=== PATIENT | male | born 1945 | race Caucasian/White ===

== ENCOUNTER 2022-03-01 09:51 | Outpatient (CLI) | payer MEDICARE, SELFPAY ==
--- NOTE | ~2022-03-01 | XR_ITS ---
XR chest 2V 03/01/2022 10:17 Indication: Abnormal PSA levels. Procedure: 2 view chest Comparison: No prior studies for comparison. Findings: Heart size is normal. No focal air space disease, pulmonary edema, pleural effusion or susp ected pneumothorax. There are calcified bilateral pulmonary nodules, consistent with chronic granulom atous disease. No acute osseous abnormality. Impression: 1: No acute cardiopulmonary disease. Reviewed, dictated and finalized at location A. Impression: 1: No acute cardiopulmonary disease.
--- NOTE | ~2022-03-01 | CT_ITS ---
EXAMINATION: CT abdomen pelvis w con DATE: 03/01/2022 10:27 INDICATION: Abnormal PSA level TECHNIQUE: Computed tomography (CT) of the abdomen and pelvis was performed with 100 CC Omnipaque 300 intravenous contrast. Automated exposure control and iterative reconstruction technique were employe d. Exam dose: 1095.97 mGy-cm total exam DLP. COMPARISON: None. FINDINGS: Right lower lobe calcified pulmonary granuloma. Calcified right hilar node. Calcified splen ic granuloma. Findings are consistent with old granulomatous disease. The lung bases are clear of inf iltrate or consolidation. Borderline heart size. No pericardial or pleural effusion. Occasional very small hypoattenuating hepatic lesions are noted, too small to definitively characteri ze, but likely hepatic cysts. The gallbladder is present and appears unremarkable. No bile duct or pancreatic duct dilatation. No p ancreatic mass lesion or calcification. Normal morphology of the adrenal glands. Multiple bilateral renal cysts, measuring up to 8 mm on the right and left. No urinary tract calculus or hydroureteronephrosis. There is moderate diffuse thickening of the urinary bladder wall with prominent prostate enlargement and minimal calcification. Small bilateral fat-containing inguinal hernias. Small fat-containing umbilical hernia. Diverticulosis of the sigmoid colon; no CT evidence of diverticulitis. No bowel obstruction, bowel wa ll thickening, pneumatosis or intraperitoneal free air. There is atherosclerotic calcification but normal caliber of the abdominal aorta. There is calcificat ion at the origins of celiac and superior mesenteric and particularly the renal arteries. No intraper itoneal or retroperitoneal or pelvic mass lesion or adenopathy or ascites. Multilevel severe degenerative disc disease of the lumbar and lumbosacral spine. No suspicious osteol ytic or osteoblastic lesions are noted. IMPRESSION: Probable very small hepatic cysts Bilateral renal cysts Prostate enlargement, likely responsible for moderate thickening of the urinary bladder wall Diverticulosis of sigmoid colon; no evidence of diverticulitis Multilevel severe degenerative disc disease of the lumbar and lumbosacral spine Reviewed, dictated and finalized at Location A. Reviewed, dictated and finalized at location B.
--- NOTE | ~2022-03-01 | NM_ITS ---
EXAMINATION: NM bone scan whole body DATE: 03/01/2022 15:54 INDICATION: Abnormal PSA level TECHNIQUE: 24.2 mCi Tc-99m HDP was administered intravenously. Delayed whole-body scintigrams were o btained. COMPARISON: Chest radiograph and CT abdomen and pelvis dated 03/01/2022 FINDINGS: Likely degenerative joint centered uptake at the bilateral acromioclavicular, sternoclavicular joints , the bilateral knees and multiple joints at the hands and wrists. Mild lumbar dextroscoliosis with d egenerative disc disease related increased uptake along the concave aspects of the curvature at the l eft side of the mid lumbar and right-sided the lower lumbar spine. Additional likely degenerative upt flori posteriorly at the upper cervical facet joints and inferiorly at the lower cervical disc spaces. Likely dental disease related uptake at the mandible and maxilla. There is prominent uptake at the bi lateral wrists and to a lesser degree at the bilateral ankles and hindfeet which appears more more di ffuse than the typical joint centered uptake suggesting soft tissue uptake of indeterminate etiology. IMPRESSION: 1. No bone lesions suspicious for metastatic disease. 2. Prominent uptake at the bilateral wrists, ankles and hindfeet at least some of which appears likel y soft tissue related and which is of indeterminate etiology. Consider correlation with plain radiogr aphs of the bilateral wrists and ankles. Reviewed, dictated and finalized at location A. IMPRESSION: 1. No bone lesions suspicious for metastatic disease. 2. Prominent uptake at the bilateral wrists, ankles and hindfeet at least some of which appears likely soft tissue related and which is of indeterminate etiol ogy. Consider correlation with plain radiographs of the bilateral wrists and an kles.
[2022-03-01 10:25] LABS: Estimated Glomerular Filt Rate 54
== END 2022-03-01 09:52 | disposition home or self-care (01) ==
PROVIDERS: PCP Internal Medicine; Visit Provider Urology
DX: N40.0 Benign prostatic hyperplasia without lower urinary tract symptoms (principal); K40.90 Unilateral inguinal hernia, without obstruction or gangrene, not specified as recurrent; K42.9 Umbilical hernia without obstruction or gangrene; I25.10 Atherosclerotic heart disease of native coronary artery without angina pectoris; M47.817 Spondylosis without myelopathy or radiculopathy, lumbosacral region; N28.1 Cyst of kidney, acquired; K57.30 Diverticulosis of large intestine without perforation or abscess without bleeding
CPT/HCPCS: 71046; 74177; 78306; A9561; Q9967

== ENCOUNTER 2022-08-08 10:12 | Outpatient (CLI) | payer MEDICARE, SELFPAY ==
[2022-08-08 11:54] LABS: Alanine Aminotransferase 21 U/L (6-50); Albumin Level 4.9 g/dL (3.5-5.1); Alkaline Phosphatase 23 U/L (38-126); Anion Gap 13 mmol/L (8-16); Aspartate Amino Transferase 26 U/L (17-59); Bilirubin,Total 0.6 mg/dL (0.2-1.3); Blood Urea Nitrogen 24 mg/dL (9-20); Calcium 10.2 mg/dL (8.4-10.2); Carbon Dioxide 30 mmol/L (22-30); Chloride 100 mmol/L (98-107); Estimated Glomerular Filt Rate 49; Glucose 114 mg/dL (65-110); Potassium 4.3 mmol/L (3.4-5.0); Sodium 143 mmol/L (137-145)
[2022-08-08 11:56] LABS: INR 1.2; Partial Thromboplastin Time 32.5 SECONDS (22.3-36.8); Prothrombin Time 14.6 Seconds (11.1-14.7)
[2022-08-08 12:09] LABS: Basophils Absolute Auto 0.1 K/mm3 (0.0-0.1); Eosinophils Absolute Auto 0.3 K/mm3 (0-0.3); Eosinophils Percent Auto 3.7 % (0-4.4); Hematocrit 42.4 % (42.0-52.0); Hemoglobin 14.5 g/dL (14.0-18.0); Immature Granulocyte Absolute 0.04 K/mm3 (0.00-0.031); Immature Granulocyte Percent A 0.6 % (0-0.5); Lymphocytes Absolute Auto 1.39 K/mm3 (0.9-3.2); Lymphocytes Percent Auto 20.4 % (18.3-44.2); Mean Corpuscular HGB Conc 34.2 g/dl (32-36); Mean Corpuscular Hemoglobin 33.2 pg (26-34); Mean Platelet Volume 11.6 fl (7.4-10.4); Monocytes Absolute Auto 0.7 K/mm3 (0.1-0.6); Monocytes Percent Auto 9.7 % (2.6-8.5); Neutrophils Absolute Auto 4.4 K/mm3 (1.3-6.7); Neutrophils Percent Auto 64.6 % (45.5-73.1); Platelet Count Result 217 k/mm3 (150-375); Red Blood Count 4.37 M/mm3 (4.6-6.20); Red Cell Distribution Width 11.8 % (11.5-14.5); White Blood Count 6.8 K/mm3 (4.5-10.0)
[2022-08-08 12:18] LABS: Add Urine Microscopic? NO; Appearance Urine Clear (Clear); Bilirubin Urine Negative (Negative); Blood Urine Negative (Negative); Color Urine Straw (Yellow); Glucose Urine UA Negative (Negative); Ketones Urine Negative (Negative); Leukocyte Esterase Ur Negative LEU/UL (Negative); Nitrate Urine Negative (Negative); Protein Urine Negative (Negative); Specific Grav Ur 1.011 (1.001-1.035); Urobilinogen Urine Negative mg/dL (<2.0)
== END 2022-08-08 10:13 | disposition home or self-care (01) ==
LOC: ANHSURGERY 10:17
PROVIDERS: PCP Internal Medicine; Visit Provider Urology
DX: Z01.818 Encounter for other preprocedural examination (principal); C61 Malignant neoplasm of prostate
CPT/HCPCS: 36415; 80053; 81003; 85025; 85610; 85730; 86850; 86900; 86901

== ENCOUNTER 2022-08-16 00:34 | Day surgery (SDC) | payer MEDICARE, SELFPAY ==
[2022-08-08 10:24] VITALS: BMI 30.2
--- NOTE | 2022-08-08 10:56 | PC.NURSE ---
Report to the Outpatient Waiting Room, entrance under the green pavilion located off [facility], at time _0600 on date _08/16/22 . Planned Procedure Time: _07 . Time changes happen often and if your time is changed the preop area will call you the afternoon before. - You and your visitor will be asked to self-screen and do not enter if you have any COVID symptoms. - We encourage only one visitor and NO visitors under age 16 are allowed at this time. Your visitor will receive communication by the phone number that is given day of service. - The patient visitor is requested to social distance or may leave the building when not with patient due to restrictions. - A mask is required within the hospital. Patients may have clear liquids (water, carbonated beverages, clear teas, apple juice) until 3 hours prior to surgery with a maximum of 20 ounces. - No food from midnight until time of surgery - Infants may have breast milk until 4 hours before surgery, formula 6 hours prior to surgery. - Children will be allowed to drink immediately following surgery. If applicable, please bring a bottle or sippy cup to assist with drinking. Juice, water, soda, and popsicles are readily available. For infants on formula, please bring formula the day of surgery. Pacifiers are allowed. Take the following medications with a SIP of water the morning of surgery: ___AMLODIPINE Medications to discontinue per physician _PT STATES HOLD MELOXICAM 7 DAYS PRE OP PER DR JOYCE_ VITAMIN D3 HOLD 3 DAYS PRE OP Date to take last dose__MELOXICAM 08/08/22__ VITAMIN D3 08/12/22 Please no make-up, nail spanish, hairspray, perfume, deodorant, or body powder the day of surgery. No jewelry (including any body piercings) or valuables the day of surgery, leave them at home. Please take a shower or bath the night before, or the morning of, surgery with an antibacterial soap. Wear comfortable, loose fitting clothing. Children are encouraged to wear pajamas. - Jewelry must be removed prior to entering the operating room. Rings and piercings that are not removed may be cut off. - The hospital will not accept responsibility for valuables. - Please leave all valuables, including medications, at home the day of surgery. BOWEL PREP PER DR JOYCE If you are going home after surgery, a licensed telephone directory distributor driver must drive you home. - NO public transportation without another adult. - We recommend that an adult stay with you for 24 hours following discharge. - We also recommend that you do not drive, make important decision, drink alcoholic beverages, or take any drugs that were not prescribed by your health care provider for at least 24 hours after your discharge time. For Pediatric surgeries, we recommend two adults accompany the child home. Follow any additional instructions given to you from your surgeon. If you or anyone in your household have experienced Covid symptoms in the past week, please notify your surgeon or the nurse liaison at the phone number below for possible testing. VERBAL AND WRITTEN instructions given to _PATIENT and asked if any additional questions and then verbalized understanding. Patient advised to call surgeon office or pre surgery nurse liaison [phone] if any additional questions.
[2022-08-08 11:23] VITALS: BP 142/84; PULSE 64; RESP 18; TEMP 36.8; O2SAT 98
--- NOTE | 2022-08-09 07:21 | PM.IMHP ---
H&P: HPI History of Present Illness Date/Time: 08/09/22 07:21 Chief Complaint: Prostate cancer Narrative: 77-year-old gentleman was found to have a PSA over 26 last spring. In January 2022 he underwent a prostate biopsy that revealed 12 of 12 cores with Babcock 8 and 9 adenocarcinoma. Some of these cores that were intraductal components to his cancer. His prostate volume at that time by ultrasonography was measured at [address] scan of the abdomen and pelvis bone scan and chest x-ray showed no definitive evidence of metastatic disease. After a couple discussions regarding therapeutic options he has elected for a robotic prostatectomy with bilateral pelvic lymphadenectomy. He is aware the risk including, but not limited to, adverse cardiopulmonary events, incontinence, erectile dysfunction and rectal injury. He is also aware of possible he for adjuvant therapy postoperatively. Review of Systems Cardiovascular: Cardiovascular: Denies chest pain, Denies lightheadedness, Denies palpitations and Denies dyspnea Respiratory: Respiratory: Denies dyspnea Gastrointestinal: Gastrointestinal: Denies diarrhea, Denies nausea and Denies vomiting Genitourinary: Genitourinary: Denies hematuria and Denies dysuria Endocrine: Endocrine: Denies palpitations PMFSH Social History Social History Smoking packs per day: 1 Smoking cigarettes per day: 20.0 Years smoked: 30 Smoking pack-years: 30.00 Smoking status: Former smoker Tobacco type: cigarettes Smoking end date: 03/12/86 Spiritual care concerns: No Meds Home Medications and Allergies Home Medications Medication Instructions Recorded Confirmed Type allopurinol 300 mg tablet 300 mg PO DAILY 08/08/22 08/08/22 History amlodipine 2.5 mg tablet 2.5 mg PO DAILY 08/08/22 08/08/22 History atorvastatin 20 mg tablet 20 mg PO DAILY 08/08/22 08/08/22 History cholecalciferol (vitamin D3) 50 50 mcg PO DAILY 08/08/22 08/08/22 History mcg (2,000 unit) tablet docusate sodium 100 mg capsule 100 mg PO HS 08/08/22 08/08/22 History (Dulcolax Stool Softener (docusate)) fenofibrate 160 mg tablet 160 mg PO DAILY 08/08/22 08/08/22 History finasteride 5 mg tablet 5 mg PO DAILY 08/08/22 08/08/22 History latanoprost 0.005 % eye drops 1 drp EACH EYE HS 08/08/22 08/08/22 History lisinopril 20 1 tablet PO DAILY 08/08/22 08/08/22 History mg-hydrochlorothiazide 25 mg tablet meloxicam 15 mg tablet 15 mg PO DAILY 08/08/22 08/08/22 History tamsulosin 0.4 mg capsule 0.4 mg PO DAILY 08/08/22 08/08/22 History Allergies Allergy/AdvReac Type Severity Reaction Status Date / Time No Known Allergies Allergy Verified 08/08/22 10:25 Vital Signs Vital Signs - 24 hr 08/08/22 11:23 Temperature 98.3 F Pulse Rate 64 Respiratory Rate 18 Blood Pressure 142/84 H Pulse Oximetry 98 Oxygen Delivery Room Air Exam Const: General: no acute distress Resp: Effort & Inspection: normal respiratory effort GI: Inspection: non-distended GI Palp: No abdominal tenderness and No Guarding due to palpation present (GI) Auscultation: normal bowel sounds Assessment and Plan Assessment and plan (1) Prostate cancer: Code(s): C61 - Malignant neoplasm of prostate Status: Acute Assessment and Plan: Robotic assisted laparoscopic prostatectomy with bilateral pelvic lymphadenectomy
--- NOTE | 2022-08-15 14:29 | P.PNAN_ITS ---
Anes - Initial Pre Proc Eval Procedure: Operation Date: 08/16/22 07:30 Proposed Procedures p Robotic Assisted Laparoscopic Prostatectomy, Bilateral Pelvic Lymph Node Dissection - Claudy Alvarez MD Date/Time: 08/15/22 14:29 Surgeon: Claudy Alvarez MD Pre Op Diagnosis: prostate CA Patient Data Age: 77 Gender: M Height: 1.8 m Weight: 98.1 kg Last Vital Signs Temp 98.3 F 08/08/22 11:23 Pulse 64 08/08/22 11:23 Resp 18 08/08/22 11:23 BP 142/84 H 08/08/22 11:23 Pulse Ox 98 08/08/22 11:23 O2 Del Method Room Air 08/08/22 11:23 Allergies Allergy/AdvReac Type Severity Reaction Status Date / Time No Known Allergies Allergy Verified 08/08/22 10:25 Home Medications Medication Instructions Recorded Confirmed Type allopurinol 300 mg tablet 300 mg PO DAILY 08/08/22 08/08/22 History amlodipine 2.5 mg tablet 2.5 mg PO DAILY 08/08/22 08/08/22 History atorvastatin 20 mg tablet 20 mg PO DAILY 08/08/22 08/08/22 History cholecalciferol (vitamin D3) 50 50 mcg PO DAILY 08/08/22 08/08/22 History mcg (2,000 unit) tablet docusate sodium 100 mg capsule 100 mg PO HS 08/08/22 08/08/22 History (Dulcolax Stool Softener (docusate)) fenofibrate 160 mg tablet 160 mg PO DAILY 08/08/22 08/08/22 History finasteride 5 mg tablet 5 mg PO DAILY 08/08/22 08/08/22 History latanoprost 0.005 % eye drops 1 drp EACH EYE HS 08/08/22 08/08/22 History lisinopril 20 1 tablet PO DAILY 08/08/22 08/08/22 History mg-hydrochlorothiazide 25 mg tablet meloxicam 15 mg tablet 15 mg PO DAILY 08/08/22 08/08/22 History tamsulosin 0.4 mg capsule 0.4 mg PO DAILY 08/08/22 08/08/22 History Patient hx anesthesia problems: none Family hx anesthesia problems: none Results Review: All pre-operative results and documents have been reviewed as part of the pre- operative evaluation. PMFSH Past Medical History Medical History (Updated 08/15/22 @ 14:29 by Diallo Saini MD) COPD (chronic obstructive pulmonary disease) Hyperlipidemia Hypertension RONAK (obstructive sleep apnea) Social History Social History Smoking packs per day: 1 Smoking cigarettes per day: 20.0 Years smoked: 30 Smoking pack-years: 30.00 Smoking status: Former smoker Tobacco type: cigarettes Smoking end date: 03/12/86 Living arrangements: with family Spiritual care concerns: No Anes - Eval Final PreProcedure Day of Procedure 08/15/22 14:29 Patient weight: obese Heart: regular rate and rhythm Lungs: clear to auscultation Airway: Mallampati scale class III Neurological: alert and oriented Last oral intake: >/= 8 hours ASA classification: III Emergent: no Anesthetic plan: proceed Anesthesia type and monitoring: general ETT and standard monitoring Results Review: All pre-operative results and documents have been reviewed as part of the pre- operative evaluation. Informed Consent: The patient's anesthetic plan and its attendant risks and benefits were discussed with the patient/family/POA. Questions were solicited and answers provided to the satisfaction of the patient/family/POA.
[2022-08-16] VITALS (14 sets, daily range): BP systolic 109–153; BP diastolic 62–91; PULSE 61–92; RESP 10–22; TEMP 36.3–36.9; O2SAT 95–100
[2022-08-16] MEDS: LACTATED RINGERS 1,000 ML 30 ML IV CONT ×2 (07:00→09:59)
--- NOTE | 2022-08-16 07:26 | WPDHPUPDATE1 ---
History and Physical Update Update Date/Time: 08/16/22 07:26 History and Physical has been reviewed, including an updated exam of the patient. There are NO changes in the patient's condition. Risks, benefits, and alternatives have been discussed and questions answered. Patient agrees to proceed with procedure.
[2022-08-16] MEDS: ceFAZolin 2 GM/D5W 50 ML 2 GM/50 ML BAG IVPB (07:33)
--- NOTE | 2022-08-16 09:15 | SUR.OPER ---
Left Pelvic Lymph Node sent for Frozen Section (attempted to notify pathology of incoming specimen but no answer) Excision @ 0910 Out of Room @ 0916 Received by Brittany @ 0918 Path Report @ [id number]
--- NOTE | 2022-08-16 09:55 | P.OP_ITS ---
Procedure Note - Detailed Date of Procedure 08/16/22 Pre-op Diagnosis Prostate CA Post-op Diagnosis Same Procedure Performed 1. Attempted (aborted) robotic prostatectomy. 2. Robotic bilateral pelvic lymphadenectomy Surgeon Claudy Alvarez MD Description of Procedure The patient was brought to the operative suite, where he was prepped and draped in routine sterile fashion while in a dorsal lithotomy, deep Trendelenburg position. A supraumbilical 10 mm trocar was placed after insufflation of the abdomen with a Veress needle. Three robotic ports were then placed under direct vision. Two of these were placed in the right lower quadrant - 10 cm and 20 cm lateral to, and in line with, the umbilicus. A third robotic trocar was placed 10 cm to the left of the umbilicus, and 20 cm to the left of the umbilicus, a 12 mm standard laparoscopic trocar was placed to be used as an assistant professor of anthropology port. Lastly, a 5 mm trocar was placed in the left upper quadrant midway between the umbilicus and the left robotic trocar. Attention was then turned to the prostatectomy. I opted for a posterior approach in this patient. An incision was made in the parietal peritoneum along the posterior bladder/posterior prostate about 2 cm above the reflection of the peritoneum over the anterior rectum. At this point it immediately became apparent that the tissue in the cul-de-sac was noticeably abnormal. The vas deferens and seminal vesicles were densely adherent to the periprostatic fat. Made a significant attempt to dissect the right seminal vesicle. The tissue was very friable and tore on multiple occasions. I had great difficulty identifying the right seminal vesicle but did not attempt to dissect it. I then lifted the vas deferens and right seminal vesicle in attempt to identify a plane posterior to the prostate. This tissue a was densely adherent to the anterior rectal wall. In light of that, knowing the aggressive nature of this patient's prostate cancer opted to forego additional dissection and abort the attempted prostatectomy, given the high likelihood of rectal injury and the likelihood for incomplete resection of his malignancy. I did decide to do an extended pelvic lymphadenectomy. The limits of this dissection were similar bilaterally. Specifically, the limits were the bifurcation of the common iliac vein proximally, the inguinal ligament distally, the obturator nerve posteriorly and the anterior aspect to the external iliac artery laterally. This dissection was undertaken with care to avoid any injury to the obturator nerve. This selena tissue was delivered through the assistant professor of anthropology trocar site without need to extend any incisions. I opted not to place a pelvic drain. The robot is undocked, and the trocars were removed. The specimen was removed through the supraumbilical incision. Subcutaneous tissue was irrigated. Skin incisions were closed with 4-0 Vicryl subcuticular. Blood loss throughout this was 10cc. The patient tolerated the procedure well, was taken to recovery room in good condition. Pathology Yes Complications No immediate complications Condition Stable Disposition PACU
[2022-08-16] MEDS: fentaNYL CITRATE INJ (*CRX) 100 MCG/2 ML VIAL 25 MCG IV PUSH ×6 (10:05→11:27)
--- NOTE | 2022-08-16 12:01 | ADMGEN ---
This patient, Davis Verma, was admitted to 2 Medical Room 261-01. Patient/family oriented to hospital policies and general routines including ID bracelet, bed and alarms, visiting hours, pain management, procedures, bathroom and other care routines, personal items, smoking policy, room service/diet, and visiting hours. Information on how to activate the Rapid Response Team has been discussed. Patient/Family are encouraged to report perceived risks to care and to ask questions if they do not understand what they are told or what they should do.
[2022-08-16] MEDS: LATANOPROST 0.005% OP SOLN 2.5 ML BTL 1 DROP EACH EYE (20:49)
[2022-08-16] MEDS: DOCUSATE SODIUM 100 MG CAPSULE PO (20:49)
[2022-08-17 00:59] VITALS: BP 119/66; PULSE 71; RESP 20; TEMP 36.6; O2SAT 95
[2022-08-17 05:35] LABS: Hematocrit 31.8 % (42.0-52.0); Hemoglobin 11.4 g/dL (14.0-18.0)
[2022-08-17 05:38] VITALS: BP 114/57; PULSE 67; RESP 20; TEMP 36.6; O2SAT 97
[2022-08-17 05:53] LABS: Anion Gap 8 mmol/L (8-16); Blood Urea Nitrogen 18 mg/dL (9-20); Calcium 8.7 mg/dL (8.4-10.2); Carbon Dioxide 27 mmol/L (22-30); Chloride 101 mmol/L (98-107); Estimated CRCL calculation 54 ml/min; Estimated Glomerular Filt Rate > 60; Glucose 109 mg/dL (65-110); Potassium 3.5 mmol/L (3.4-5.0); Sodium 136 mmol/L (137-145)
--- NOTE | 2022-08-17 07:03 | WPDUROPN2 ---
Progress Note: A&P Assessment and Plan (1) Prostate cancer: Code(s): C61 - Malignant neoplasm of prostate Status: Acute Assessment and Plan: Long discussions with pt. and about findings at surgery leading to decision not to remove his prostate. Tolerating regular diet. Likely home midday today. Subjective Subjective Date/Time Seen: 08/17/22 07:03 Comfortable, tolerating regular diet Review of Systems Cardiovascular: Cardiovascular: Denies chest pain, Denies lightheadedness, Denies palpitations and Denies dyspnea Respiratory: Respiratory: Denies dyspnea Gastrointestinal: Gastrointestinal: Denies diarrhea, Denies nausea and Denies vomiting Genitourinary: Genitourinary: Denies hematuria and Denies dysuria Endocrine: Endocrine: Denies palpitations Exam Const: General: no acute distress Resp: Effort & Inspection: normal respiratory effort GI: Inspection: non-distended GI Palp: No abdominal tenderness and No Guarding due to palpation present (GI) Auscultation: normal bowel sounds Objective Data Vital Signs Vital Signs: Vital Signs - 24 hr 08/16/22 07:12 08/16/22 09:59 08/16/22 10:10 Temperature 97.7 F 97.3 F L Pulse Rate 70 68 65 Respiratory Rate 14 22 H 12 Blood Pressure 132/69 153/85 H 142/85 H Pulse Oximetry 96 98 100 Oxygen Delivery Room Air Simple Face Mask Simple Face Mask Oxygen Flow Rate 8 8 08/16/22 10:25 08/16/22 10:40 08/16/22 10:55 Temperature 97.4 F L Pulse Rate 61 66 75 Respiratory Rate 10 L 10 L 12 Blood Pressure 137/80 137/80 135/73 Pulse Oximetry 100 100 98 Oxygen Delivery Simple Face Mask Simple Face Mask Room Air Oxygen Flow Rate 8 8 08/16/22 11:10 08/16/22 11:25 08/16/22 11:45 Temperature 97.3 F L Pulse Rate 77 74 68 Respiratory Rate 12 12 16 Blood Pressure 135/91 H 132/84 143/81 H Pulse Oximetry 98 98 96 Oxygen Delivery Room Air Room Air Oxygen Flow Rate 08/16/22 12:00 08/16/22 12:30 08/16/22 14:15 Temperature 97.3 F L 97.5 F L 97.7 F Pulse Rate 63 71 92 Respiratory Rate 16 16 18 Blood Pressure 126/73 127/72 140/77 Pulse Oximetry 95 98 98 Oxygen Delivery Oxygen Flow Rate 08/16/22 18:00 08/16/22 21:42 08/17/22 00:59 Temperature 98.3 F 98.4 F 98 F Pulse Rate 76 73 71 Respiratory Rate 16 20 20 Blood Pressure 109/62 126/64 119/66 Pulse Oximetry 95 96 95 Oxygen Delivery Oxygen Flow Rate 08/17/22 05:38 Temperature 97.8 F Pulse Rate 67 Respiratory Rate 20 Blood Pressure 114/57 L Pulse Oximetry 97 Oxygen Delivery Oxygen Flow Rate Intake/Output Intake/Output: Intake & Output 08/14/22 08/15/22 08/16/22 08/17/22 23:59 23:59 23:59 23:59 Intake Total 2600 450 Output Total 1690 1600 Balance 910 -1150 Meds/Results Medications: Active Medications Generic Name Dose Route Start Last Admin Trade Name Freq PRN Reason Stop Dose Admin Allopurinol 300 mg 08/17/22 09:00 Allopurinol 300 Mg Tablet PO DAILY [facility] Amlodipine Besylate 2.5 mg 08/17/22 09:00 Amlodipine Besylate 2.5 Mg Tablet PO DAILY [facility] Atorvastatin Calcium 20 mg 08/17/22 09:00 Atorvastatin 20 Mg Tablet PO DAILY [facility] Docusate Sodium 100 mg 08/16/22 21:00 08/16/22 20:49 Docusate Sodium 100 Mg Capsule PO 100 mg HS JOAN Administration Fenofibrate 160 mg 08/17/22 09:00 Fenofibrate 160 Mg Tablet PO DAILY [facility] Finasteride 5 mg 08/17/22 09:00 Finasteride 5 Mg Tablet PO DAILY [facility] Hydrochlorothiazide 25 mg 08/17/22 09:00 Hydrochlorothiazide 25 Mg Tablet PO DAILY [facility] Hyoscyamine 0.125 mg 08/16/22 11:33 Hyoscyamine Sulfate 0.125 Mg Tablet SUBLINGUAL Q4H PRN Bladder Spasm Latanoprost 1 drop 08/16/22 21:00 08/16/22 20:49 Latanoprost 0.005% Op Soln 2.5 Ml Btl EACH EYE 1 drop HS JOAN Administration Levofloxacin 500 mg 08/17/22 09:00 Levofloxacin 500 Mg Tablet PO DAILY [facility] Lisinopril 20 mg 08/17/22 09:00
--- NOTE | 2022-08-17 07:56 | WPDANESPN ---
Anes - Prog Note Post-Op Date/Time: 08/17/22 07:56 Vital Signs: Last Vital Signs Temp 36.6 C 08/17/22 05:38 Pulse 67 08/17/22 05:38 Resp 20 08/17/22 05:38 BP 114/57 L 08/17/22 05:38 Pulse Ox 97 08/17/22 05:38 O2 Del Method Room Air 08/16/22 11:25 O2 Flow Rate 8 08/16/22 10:40 Pain Score (VAS): 2 I/O: Intake & Output 08/16/22 08/16/22 08/17/22 15:59 23:59 07:59 Intake Total 2120 480 450 Output Total 90 1600 1600 Balance 2030 -1120 -1150 Laboratory Tests 08/17/22 04:48 08/17/22 04:48 08/17/22 08/17/22 04:48 04:48 Hgb 11.4 L D Hct 31.8 L Sodium 136 L Potassium 3.5 Chloride 101 Carbon Dioxide 27 Anion Gap 8 BUN 18 Creatinine 1.10 Estim Creat Clear Calc 54 Estimated GFR > 60 Glucose 109 Calcium 8.7 Patient Feedback: Patient satisfied with anesthetic care.
[2022-08-17] MEDS: levoFLOXacin 500 MG TABLET PO (10:58)
[2022-08-17] MEDS: ATORVASTATIN 20 MG TABLET PO (10:59)
[2022-08-17] MEDS: FINASTERIDE 5 MG TABLET PO (10:59)
[2022-08-17] MEDS: MELOXICAM 7.5 MG TABLET 15 MG PO (10:59)
[2022-08-17] MEDS: TAMSULOSIN HCL 0.4 MG CAPSULE PO (10:59)
[2022-08-17] MEDS: FENOFIBRATE 160 MG TABLET PO (10:59)
[2022-08-17] MEDS: hydroCHLOROthiazide 25 MG TABLET PO (10:59)
[2022-08-17 11:00] VITALS: O2SAT 97
[2022-08-17] MEDS: allopurinoL 300 MG TABLET PO (11:00)
[2022-08-17] MEDS: lisinopriL 20 MG TABLET PO (11:00)
[2022-08-17] MEDS: amLODIPine BESYLATE 2.5 MG TABLET PO (11:01)
[2022-08-17 11:20] VITALS: BP 136/70; PULSE 82; RESP 17; TEMP 36.7; O2SAT 95
--- NOTE | 2022-08-17 12:12 | PM.DS ---
DS: Admitting Diagnosis Discharge Date 08/17/22 Admitting Diagnosis Prostate cancer DS: Summary Hospital Course Hospital Course: Patient was admitted on morning of a planned robotic radical prostatectomy. With laparoscopy, however, it became apparent at the outset of this procedure that there were signs of extraprostatic extension into, and involving, the periprostatic tissue extending posteriorly towards the rectum. Light of these findings we opted to forego the prostatectomy. I did perform a bilateral pelvic lymphadenectomy. The patient was observed overnight and the following day was tolerating a diet and ambulating well. He was discharged without an indwelling catheter with plans to follow-up in 2 weeks to consider alternative options for treating his prostate cancer. Time Spent with Patient Time attestation: Total time spent providing and/or coordinating discharge services: DS: Data Data Completed and Pending Pending studies at discharge: Pending at discharge 08/16/22 09:10 Surgical [PTH] Routine Labs on day of discharge: Labs from last 24 hours 08/17/22 08/17/22 04:48 04:48 Hgb 11.4 L D Hct 31.8 L Sodium 136 L Potassium 3.5 Chloride 101 Carbon Dioxide 27 Anion Gap 8 BUN 18 Creatinine 1.10 Estim Creat Clear Calc 54 Estimated GFR > 60 Glucose 109 Calcium 8.7 Discharge Plan Discharge Patient Disposition: Home, Self-Care Discharge Instructions: 1) Activity: no driving or important decisions x24 hours. 2) Diet: resume your normal, pre-admission diet. 3) Follow-up: 2-3 weeks / my office will contact Patient Instructions: Pain Management (DC) Discharge Orders: Discharge Order (Routine); Ordered 08/17/22 Ordered By: Claudy Alvarez Discharge Medications: New hydrocodone-acetaminophen 5-325 mg tablet 1 - 2 tablet PO Q6H PRN (Reason: pain) Qty: 20 0RF docusate sodium [Colace] 100 mg capsule 100 mg PO DAILY Qty: 30 0RF Continued latanoprost 0.005 % drops 1 drp EACH EYE HS atorvastatin 20 mg tablet 20 mg PO DAILY amlodipine 2.5 mg tablet 2.5 mg PO DAILY tamsulosin 0.4 mg capsule 0.4 mg PO DAILY docusate sodium [Dulcolax Stool Softener (dss)] 100 mg Capsule 100 mg PO HS lisinopril-hydrochlorothiazide 20-25 mg tablet 1 tablet PO DAILY allopurinol 300 mg tablet 300 mg PO DAILY finasteride 5 mg tablet 5 mg PO DAILY fenofibrate 160 mg tablet 160 mg PO DAILY cholecalciferol (vitamin D3) 50 mcg (2,000 unit) Tablet 50 mcg PO DAILY meloxicam 15 mg tablet 15 mg PO DAILY
[2022-08-17 14:53] VITALS: BP 122/63; PULSE 78; RESP 17; TEMP 36.3; O2SAT 96
== END 2022-08-17 15:54 | disposition home or self-care (01) ==
LOC: ANHSURGERY 06:16 → ANH2MED 11:57
PROVIDERS: PCP Internal Medicine; Visit Provider Urology
PROC: 0VT04ZZ Resection of Prostate, Percutaneous Endoscopic Approach (ICD-10-PCS; CPT 55867; principal; 2022-08-16 07:30)
DX: C61 Malignant neoplasm of prostate (principal); Z53.8 Procedure and treatment not carried out for other reasons; I10 Essential (primary) hypertension; E78.5 Hyperlipidemia, unspecified; J44.9 Chronic obstructive pulmonary disease, unspecified; G47.33 Obstructive sleep apnea (adult) (pediatric); Z87.891 Personal history of nicotine dependence; E66.9 Obesity, unspecified; Z68.29 Body mass index [BMI] 29.0-29.9, adult
CPT/HCPCS: 38571; 55866; S2900; 36415; 80048; 80053; 81003; 85014; 85018; 85025; 85610; 85730; 86850; 86900; 86901; 88305; 88331; 88342; A9270; J0690; J1100; J1170; J2250; J2370; J2405; J2704; J2710; J3010; J7030; J7120

== ENCOUNTER 2023-03-27 12:22 | Outpatient (CLI) | payer MEDICARE, SELFPAY ==
--- NOTE | ~2023-03-27 | MR_ITS ---
EXAMINATION: MR pelvis wo/w con INDICATION: Malignant neoplasm of the prostate TECHNIQUE: 3D Axial T2 Cube, Axial 2D FIESTA, Coronal SSFSE ARC, Axial and Coronal 2D FIESTA FatSat, Axial T2 FS, Axial SSFSE BH ARC, Axial 3D DualEcho BH, Axial SSFSE-IR Sampson, Axial DWI b=600, pre and d ynamic postcontrast Axial LAVA ARC, WATER:POST Cor LAVA-FLEX COMPARISON: CT, 03/01/2022 CONTRAST: Multihance, 19 cc FINDINGS: There is heterogeneous T1 and T2 signal intensity within the prostate. No discrete area of T2 hypointensity and associated restricted diffusion is identified. There is heterogeneous enhancemen t of the prostate after contrast administration. A right common iliac chain lymph node measures 11 mm in short axis. There are no dilated loops of bowel. Sacral Tarlov cysts are noted. IMPRESSION: 1. Heterogeneous signal intensity and enhancement of the prostate without focal mass identified. 2. Indeterminate mildly enlarged right common iliac chain lymph node. Reviewed, dictated and finalized at location F.
== END 2023-03-27 12:23 | disposition home or self-care (01) ==
PROVIDERS: PCP Family Medicine Sports Medicine; Visit Provider Radiology Radiation Oncology
DX: C61 Malignant neoplasm of prostate (principal); R59.0 Localized enlarged lymph nodes; Z51.0 Encounter for antineoplastic radiation therapy
CPT/HCPCS: 72197; A9577

== ENCOUNTER 2023-03-29 12:00 | Outpatient (CLI) | payer MEDICARE, SELFPAY ==
--- NOTE | ~2023-03-29 | PE_ITS ---
EXAMINATION: PET_PETPSMAST_PT DATE: 03/29/2023 14:35 INDICATION: Malignant neoplasm of prostate. TECHNIQUE: 9.093 mCi of piflufolastat F-18 was administered intravenously. Low dose computed tomograp hy (CT) images were acquired from the base of the brain to the proximal thighs for attenuation correc tion and anatomic localization. Automated exposure control was employed. Dose-length product (DLP) wa s 662 mGy-cm. Positron emission tomography (PET) images were acquired in the same distribution. COMPARISON: CT abdomen and pelvis 03/01/2022 FINDINGS: Head/neck: There are no pathologically enlarged lymph nodes. Chest: Calcified pulmonary nodules and calcified hilar and mediastinal lymph nodes are consistent wit h old granulomatous disease. No pleural effusion. The heart size is normal. No pericardial effusion. Abdomen/pelvis/proximal thighs: The liver, gallbladder, and pancreas are normal. Calcifications in th e spleen are consistent with old granulomatous disease. The adrenal glands are normal. There are cyst s in the kidneys measuring up to 7 mm on the right. The bladder is distended. The prostate is moderat theodore enlarged. There is increased activity in the prostate bilaterally with maximum SUV of 55.4. There are brachytherapy seeds in the prostate. Stool distends the rectum. There are bilateral inguinal her nias containing fat. Aortic atherosclerosis is noted. There is an 18 x 11 mm right common iliac node with maximum SUV of 65.6. There are normal sized left common iliac, left external iliac, left interna l iliac, and perirectal nodes with increased activity. There is no free intraperitoneal fluid. Ther e is no osseous malignancy. IMPRESSION: 1. Moderately enlarged prostate with increased activity, consistent with primary malignancy. 2. Pelvic lymphadenopathy with increased activity, consistent with metastatic disease. Reviewed, dictated and finalized at location A. IMPRESSION: 1. Moderately enlarged prostate with increased activity, consistent with primar y malignancy. 2. Pelvic lymphadenopathy with increased activity, consistent with metastatic d isease.
== END 2023-03-29 12:01 | disposition home or self-care (01) ==
PROVIDERS: PCP Family Medicine Sports Medicine; Visit Provider Radiology Radiation Oncology
DX: C61 Malignant neoplasm of prostate (principal)
CPT/HCPCS: 78815; A9595